=== PATIENT | male | born 1990 | race Hispanic/Latino ===

== ENCOUNTER 2021-05-26 10:03 | Day surgery (SDC) | payer BC ==
[2021-05-20 14:10] VITALS: BMI 32.8
[2021-05-26] MEDS ORDERED: Lidocaine 1% MPF 2 ML VIAL ONE (10:32)
[2021-05-26] MEDS ORDERED: SUGAMMADEX SODIUM 200 MG/2 ML VIAL ONE (12:07)
[2021-05-26] MEDS ORDERED: PROPOFOL 20 ML ONE (12:08)
[2021-05-26] MEDS ORDERED: Dexamethasone 20 MG/5 ML VIAL ONE (12:09)
[2021-05-26] MEDS ORDERED: Midazolam HCl 2 mg/2 ml Vial ONE (12:09)
[2021-05-26] MEDS ORDERED: Lidocaine 1% PF 5 ML VIAL ONE (12:09)
[2021-05-26] MEDS ORDERED: Fentanyl 250 MCG/5 ML VIAL ONE (12:09)
[2021-05-26] MEDS ORDERED: Rocuronium Bromide 10 MG/ML (10ML VIAL) ONE (12:09)
[2021-05-26] MEDS ORDERED: Ondansetron PF 4 MG/2 ML Vial ONE (12:09)
[2021-05-26] MEDS ORDERED: Oxymetazoline HCl 0.05% ( 15 ML ) ONE (12:29)
[2021-05-26] MEDS ORDERED: Meperidine HCl/PF 25 MG/ML VIAL ONE (13:04)
[2021-05-26] MEDS ORDERED: Fentanyl 100 MCG/2 ML VIAL ONE (13:44)
[2021-05-26] MEDS ORDERED: Hydrocodone-Acetamin 15 ML UDCUP ONE (14:17)
== END 2021-05-26 15:05 | disposition home or self-care (01) ==
LOC: CSHSDC 10:03
PROVIDERS: ATTEND Otolaryngology Plastic Surgery within the Head & Neck
PROC: 0CTQXZZ Resection of Adenoids, External Approach (ICD-10-PCS; principal; 2021-05-26)
PROC: 0CTPXZZ Resection of Tonsils, External Approach (ICD-10-PCS; principal; 2021-05-26)
DX: J35.01 Chronic tonsillitis (principal); J35.3 Hypertrophy of tonsils with hypertrophy of adenoids; J30.9 Allergic rhinitis, unspecified; E66.9 Obesity, unspecified; Z68.32 Body mass index [BMI] 32.0-32.9, adult; F17.210 Nicotine dependence, cigarettes, uncomplicated
CPT/HCPCS: 88304; J1100; J2175; J2250; J2405; J2704; J3010